=== PATIENT | female | born 1990 | race African-American/Black ===

== ENCOUNTER 2020-05-03 16:57 | Inpatient (IN) | payer SELFPAY ==
[~2020-05-03] VITALS: Ht 160 cm; Wt 103.2 kg
[~2020-05-03 16:57] MED LIST: ALBUTEROL2.5 MG/3 M INH; ATIVAN0.5 MG ORAL; AZITHROMYCIN250 MG ORAL; DULERA 100 MCG/13 GM INH; IBUPROFEN600 MG ORAL; NICODERM 21MG/241 EA TDERMAL; PREDNISONE20 MG ORAL; ZOLOFT50 MG ORAL
[2020-05-03] MEDS ORDERED: Ipratropium 0.02% Inh Soln 2.5ml UD HHN ONE (17:00)
[2020-05-03] MEDS ORDERED: EPINEPHrine 1mg/1ml Amp IM ONE (17:00)
[2020-05-03 17:02] VITALS: BP 144/74
--- NOTE | 2020-05-03 17:06 | Emergency Room Report ---
History of Present Illness General Chief Complaint: Dyspnea/Respdistress Source: Patient, Medical Record Present Illness HPI Patient presents with severe dyspnea saying her asthma is worse at this time. This began this morning. She has been using her inhaler frequently and has not been helping. She complains of some chest pain. She is not coughing up any productive phlegm. She denies fevers or chills. Patient has never been intubated. The patient is using some [id number] asthma medication recently. She has used prednisone in the past. She denies this being her worst attack ever but states it is very significant. She does not believe she has been exposed to COVID-19. Apparently the patient does smoke cigarettes. She does not believe she is at this time. No sore throat, palpitations, nausea, vomiting, diarrhea, dysuria, abdominal pain, joint pain, rashes, dizziness, headache. 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4 110 22 144/74 (97) 98 Room Air Sp02 EP Interpretation: reviewed, normal - Visit General Appearance: alert, non-toxic, mild distress, other - Diaphoretic Head: normocephalic Eyes: bilateral eye normal inspection ENT: normal pharynx, moist mucus membranes Neck: supple Respiratory: respiratory distress - But is asthmatic that was in status asthmaticus was refusing to get breathing treatments but gave her Leica I gave her epi and had to rule out COVID-19 to be able to give her breathing treatments needed, wheezing - Audible inspiratory and expiratory at bedside Cardiovascular #1: tachycardia Cardiovascular #2: 2+ radial (R) Gastrointestinal: normal inspection, normal bowel sounds, non tender, no mass, non-distended, overweight Genitourinary: no CVA tenderness Musculoskeletal: back normal, normal range of motion, no calf tenderness, gait/ station normal - Limited by dyspnea Neurologic: alert, oriented x3, grossly normal Psychiatric: anxious Skin: no rash, diaphoresis Procedures Critical Care Time Critical Care Time Total Critical Care Time: 60 min bedside evaluation and treatment excludes procedures (EKG). Reason for critical care: status asthmaticus, repeat evaluations Possible complications: hypotension, hypertension, [place], shock, arrhythmias, metabolic acidosis, end organ damage, respiratory failure. Interventions: steroids, epi, breathing treatments, repeat evaluations, magnesium Course: Patient presented with severe shortness of breath and wheezing. Unable to give nebulized treatment until COVID-19 excluded. IM epinephrine administered along with Solu-Medrol. Some improvement. COVID-19 negative. Nebulized treatments begun. Patient with the significant anxiety and Ativan administered. Patient still with dyspnea with minimal exertion. Breathing treatments ordered again but refused by patient. Consultations: nursing staff, EMS, RT, admitting physician Performed by: Dr. Lua Tolerated well condition = serious Medical Decision Making Diagnostic Impression: Primary Impression: Status asthmaticus Qualified Codes: J45.52 - Severe persistent asthma with status asthmaticus ER Course Patient presents with severe asthma attack. Differential includes pulmonary embolus, electrolyte imbalance, pneumonia amongst others. Patient evaluated EKG , chest x-ray and labs. Patient needs a COVID-19 test before we can give her nebulized treatments which is what she is asking for. In the interim the patient will be treated with IM epinephrine. Also Solu-Medrol will be administered. We will be checking a magnesium level. EKG without injury or right axis deviation. Chest x-ray no infiltrates. COVID- 19 negative. Labs with leukocytosis which might be demargination. After epinephrine diaphoresis gone. She still states that she does not feel well and is having difficulty breathing. Ativan ordered. Improved but still with wheezing. Magnesium ordered. Dyspnea with minimal exertion but able to ambulate to bathroom with several stops. Repeat breathing treatments ordered. Patient refusing further breathing treatments. Admit telemetry. Laboratory Tests Test 05/03/20 17:17 White Blood Count 13.0 K/UL (4.8-10.8) H Red Blood Count 4.92 M/UL (4.20-5.40) Hemoglobin 13.9 G/DL (12.0-16.0) Hematocrit 42.0 % (37.0-47.0) Mean Corpuscular Volume 85 FL (80-99) Mean Corpuscular Hemoglobin 28.3 PG (27.0-31.0) Mean Corpuscular Hemoglobin Concent 33.2 G/DL (32.0-36.0) Red Cell Distribution Width 13.6 % (11.6-14.8) Platelet Count 323 K/UL (150-450) Mean Platelet Volume 8.9 FL (6.5-10.1) Neutrophils (%) (Auto) 89.0 % (45.0-75.0) H Lymphocytes (%) (Auto) 8.0 % (20.0-45.0) L Monocytes (%) (Auto) 2.0 % (1.0-10.0) Eosinophils (%) (Auto) 1.0 % (0.0-3.0) Basophils (%) (Auto) % (0.0-2.0) Prothrombin Time 10.1 SEC (9.30-11.50) Prothrombin Time INR 0.9 (0.9-1.1) Activated Partial Thromboplast Time 28 SEC (23-33) Sodium Level 140 MMOL/L (136-145) Potassium Level 4.2 MMOL/L (3.5-5.1) Chloride Level 102 MMOL/L (98-107) Carbon Dioxide Level 25 MMOL/L (21-32) Anion Gap 13 mmol/L (5-15) Blood Urea Nitrogen 7 mg/dL (7-18) Creatinine 1.1 MG/DL (0.55-1.30) Estimated Glomerular Filtration Rate > 60 mL/min (>60) Glucose Level 117 MG/DL (74-106) H Calcium Level 9.4 MG/DL (8.5-10.1) Magnesium Level 2.0 MG/DL (1.8-2.4) Total Bilirubin 0.6 MG/DL (0.2-1.0) Aspartate Amino Transferase (AST) 31 U/L (15-37) Alanine Aminotransferase (ALT) 44 U/L (12-78) Alkaline Phosphatase 107 U/L (46-116) Troponin I 0.000 ng/mL (0.000-0.056) Total Protein 8.8 G/DL (6.4-8.2) H Albumin 4.6 G/DL (3.4-5.0) Globulin 4.2 g/dL Albumin/Globulin Ratio 1.1 (1.0-2.7) Human Chorionic Gonadotropin, Qual Negative (NEGATIVE) Microbiology Date/Time Source Procedure Growth Status 05/03/20 17:17 Nasopharynx SARS-CoV-2 RdRp Gene Assay - Final Complete EKG Diagnostic Results Rate: tachycardiac Rhythm: NSR ST Segments: no acute changes Rhythm Strip Diag. Results EP Interpretation: yes Rhythm: no PVC's, no ectopy, other - Sinus tachycardia Chest X-Ray Diagnostic Results Chest X-Ray Diagnostic Results : Chest X-Ray Ordered: Yes # of Views/Limited/Complete: 1 View Indication: Shortness of Breath EP Interpretation: Yes Interpretation: no consolidation, no effusion, no pneumothorax, other Impression: Other Electronically Signed by: Electronically signed by Roc Lua MD Last Vital Signs Date Time Temp Pulse Resp B/P (MAP) Pulse Ox O2 Delivery O2 Flow Rate FiO2 05/04/20 00:00 97.9 115 23 137/59 (85) 100 05/03/20 23:40 Room Air 21 Status: improved Disposition: ADMITTED INPATIENT Condition: Serious Roc Lua MD May 03, 2020 17:05
--- NOTE | 2020-05-03 17:10 | NUR ---
ED Nurse Note: Patient walked in to ER from home due to SOB and chest tightness since today. Pt has hx of asthma and reported that she took albuterol but didnt work for her. Patient presented anxious, AAO x4, HR 112, othe VSS at this time.
[2020-05-03] MEDS ORDERED: Solu-MEDROL 125mg Inj IVP ONE (17:15)
[2020-05-03 17:46] LABS: HEMOGLOBIN 13.9 G/DL (12.0-16.0); MEAN CORPUSCULAR VOLUME 85 FL (80-99); PLATELET COUNT 323 K/UL (150-450); RED BLOOD COUNT 4.92 M/UL (4.20-5.40); RED CELL DISTRIBUTION WIDTH 13.6 % (11.6-14.8)
[2020-05-03 17:56] LABS: ANION GAP 13 mmol/L (5-15); BLOOD UREA NITROGEN 7 mg/dL (7-18); CALCIUM 9.4 MG/DL (8.5-10.1); CARBON DIOXIDE 25 MMOL/L (21-32); CHLORIDE 102 MMOL/L (98-107); CREATININE 1.1 MG/DL (0.55-1.30); POTASSIUM 4.2 MMOL/L (3.5-5.1); SODIUM 140 MMOL/L (136-145)
[2020-05-03 18:00] LABS: ALANINE AMINOTRANSFERASE 44 U/L (12-78); ALBUMIN 4.6 G/DL (3.4-5.0); ALBUMIN/GLOBULIN RATIO 1.1 (1.0-2.7); ALKALINE PHOSPHATASE 107 U/L (46-116); ASPARTATE AMINO TRANSFERASE 31 U/L (15-37); BILIRUBIN,TOTAL 0.6 MG/DL (0.2-1.0)
[2020-05-03] MEDS: Albuterol ud Inhalation HHN SCH ×2 (18:19→18:20)
[2020-05-03] MEDS ORDERED: LORazepam Inj 2mg/ml 1ml IV ONE (18:30)
--- NOTE | 2020-05-03 18:37 | NUR ---
ED Nurse Note: Patient COVID (-), patient getting breathing treatment
[2020-05-03 18:40] LABS: INR 0.9 (0.9-1.1)
--- NOTE | 2020-05-03 19:06 | NUR ---
HAND-OFF: Report given to Westley Gallagher RN.
--- NOTE | 2020-05-03 19:42 | NUR ---
ED Nurse Note: patient resting in bed with no signs of acute distress. audible wheezes noted. discussed plan of care; aware of pending admission.
[2020-05-03] MEDS ORDERED: Albuterol ud Inhalation HHN ONE (20:00)
[2020-05-03 20:04] VITALS: BP 148/79
--- NOTE | 2020-05-03 20:49 | NUR ---
ED Nurse Note: rt at bedside for breathing treatment. patient refused. explained risk and benefits x3. patient still refused.
--- NOTE | 2020-05-03 20:50 | NUR ---
TRANSFER TO FLOOR: Patient transferred to [facility] 214-2 as ordered, per derrek escobedo. Report given to lily mobley. patient stable for transport. transferred to unit via gurney with rn. belongings and admission packet sent with patient.
[2020-05-03 21:00] VITALS: BP 142/78
--- NOTE | 2020-05-03 21:00 | NUR ---
NURSE NOTES: Report received form Westley Gallagher ED RN. Belonging list was reviewed with ED nurse. Patient came from ER via gurney. Patient is A/O x4 and in stable condition. No complains of pain. No S/S of distress; but is stating that she has an increase of anxiety. IV site is located 20g left AC saline lock; patent and flushing. No erythema or bleeding noted. Patients is fully ambulatory with a steady gait. Skin is intact. Bed in lowest position, brake are on, sidrails up x2. Call light and belongings with in reach. Patient educated to call nurse before getting up. Will continue to monitor.
--- NOTE | 2020-05-03 21:50 | NUR ---
NURSE NOTES: Called Dr. Ferrer regarding admission orders. Received admission orders. Noted and carried out.
--- NOTE | 2020-05-03 21:55 | NUR ---
NURSE NOTES: Patient is requesting medication for anxiety. Will call for orders. Will continue to monitor.
--- NOTE | 2020-05-03 22:00 | NUR ---
NURSE NOTES: Called Dr. Ferrer regarding patient request for anxiety medication. Received order for Ativan 0.5mg IVP Q6Hr. Noted and cared out.
[2020-05-03] MEDS ORDERED: LORazepam Inj 2mg/ml 1ml IVP PRN (22:15)
--- NOTE | 2020-05-03 22:57 | NUR ---
NURSE NOTES: Patient sleeping comfortably at this time. will countinue to monitor.
[2020-05-03] MEDS: Albuterol/Ipratropium 3ml neb HHN SCH (23:40)
[2020-05-04] VITALS: BP 137/59
[2020-05-04] MEDS: Azithromycin 500 MG in D5W 275 ML IV SCH ×2 (00:38→01:35)
[2020-05-04] MEDS: Albuterol/Ipratropium 3ml neb HHN SCH ×3 (03:23→11:02)
[2020-05-04 04:00] VITALS: BP 118/69
[2020-05-04 07:36] LABS: ANION GAP 12 mmol/L (5-15); BLOOD UREA NITROGEN 9 mg/dL (7-18); CALCIUM 8.5 MG/DL (8.5-10.1); CARBON DIOXIDE 22 MMOL/L (21-32); CHLORIDE 103 MMOL/L (98-107); SODIUM 137 MMOL/L (136-145)
--- NOTE | 2020-05-04 07:39 | NUR ---
NURSE HAND-OFF REPORT: Important Events on Shift:None Patient Status: Stable Diet: Regular Pending Orders: None Pending Results/Labs:Pending Pending MD notification:N/a Latest Vital Signs: Temperature 97.7 , Pulse 101 , B/P 118 /69 , Respiratory Rate 20 , O2 SAT 97 , Room Air, O2 Flow Rate . Vital Sign Comment: N/A EKG Rhythm: Sinus Tachycardia Rhythm change?: N MD Notified?: - MD Response: Latest Morrissey Fall Score: 20 Fall Risk: Low Risk Safety Measures: Call light Within Reach, Bed Alarm Zone 2, Side Rails Side Rails x2, Bed position Low and Locked. Fall Precautions: Implemented Yellow Socks Yellow Gown Patient Fall Education Report given to Mary CROSS.
[2020-05-04 08:00] VITALS: BP 135/75
[2020-05-04 08:04] LABS: PHOSPHORUS 2.5 MG/DL (2.5-4.9)
--- NOTE | 2020-05-04 08:06 | NUR ---
NURSE NOTES: Received report from AMERICA Keller. Pt A/O x4. No s/s of acute respiratory and cardiac distress. Currently on room air. SL on right hand, patent and intact. Bed in low position, side rails up x2 and call light within reach. Will continue to monitor.
--- NOTE | 2020-05-04 08:35 | History & Physical ---
History of Present Illness General Reason for Hospitalization: Dyspnea/Respdistress Present Illness Allergies: Coded Allergies: No Known Allergies (Unverified , 03/28/15) COVID-19 Screening Contact w/high risk pt: No Experienced COVID-19 symptoms?: No Medication History Scheduled Azithromycin* (Zithromax*), 250 MG ORAL DAILY Ibuprofen (Motrin), 600 MG ORAL THREE TIMES A DAY Mometasone/Formoterol (Dulera 100 Mcg/5 Mcg Inhaler), 2 PUFFS INH DAILY, ( Reported) Nicotine (Nicotine Patch), 1 PATCH TDERMAL Q24H Prednisone* (Prednisone*), 40 MG ORAL DAILY Prednisone* (Prednisone*), 20 MG ORAL BID Sertraline Hcl* (Zoloft*), 50 MG ORAL DAILY Scheduled PRN Albuterol Sulfate* (Albuterol Sulfate Hhn*), 3 ML INH Q6H PRN for Shortness of Breath, (Reported) Lorazepam* (Ativan*), 0.5 MG ORAL Q6H PRN for For Anxiety Patient History Healthcare decision maker Resuscitation status Advanced Directive on File Review of Systems Review of Symptoms General ROS: no weight loss or fever Psychological ROS: no depression or mood changes, no memory loss Ophthalmic ROS: no visual changes or eye irritation ENT ROS: no nasal congestion, hearing loss, dizziness Allergy and Immunology ROS: no allergic symptoms or urticaria Hematological and Lymphatic ROS: no swollen glands, unusual bleeding or bruising Endocrine ROS: no polyuria, polydipsia, weight changes, temperature intolerance Respiratory ROS: no cough, shortness of breath, or wheezing Cardiovascular ROS: no chest pain or dyspnea on exertion Gastrointestinal ROS: denies abdominal pain, bright red blood in stool. Musculoskeletal ROS: no myalgias or arthralgias Neurological ROS: no TIA or stroke symptoms Dermatological ROS: no new or changing skin lesions, rashes or pruritis Physical Exam Physical Exam General appearance: alert, cooperative, no distress, appears stated age Head: Normocephalic, without obvious abnormality, atraumatic Eyes: conjunctivae/corneas clear. PERRL, EOM's intact. Fundi benign Throat: Lips, mucosa, and tongue normal. Teeth and gums normal Neck: supple, symmetrical, trachea midline, no adenopathy, thyroid: not enlarged, symmetric, no tenderness/mass/nodules, no carotid bruit and no JVD Lungs: clear to auscultation bilaterally Heart: regular rate and rhythm, S1, S2 normal, no murmur, click, rub or gallop Abdomen: soft, non-tender. Bowel sounds normal. No masses, no organomegaly Extremities: extremities normal, atraumatic, no cyanosis or edema Pulses: 2+ and symmetric Skin: Skin color, texture, turgor normal. No rashes or lesions Neurologic: Grossly normal Last 24 Hour Vital Signs Date Time Temp Pulse Resp B/P (MAP) Pulse Ox O2 Delivery O2 Flow Rate FiO2 05/04/20 08:00 97.7 105 20 135/75 (95) 95 05/04/20 04:00 101 05/04/20 04:00 97.7 107 20 118/69 (85) 97 05/04/20 03:25 106 20 100 Room Air 21 102 20 100 05/04/20 00:00 97.9 115 23 137/59 (85) 100 05/04/20 00:00 108 05/03/20 23:40 111 20 100 Room Air 21 108 20 99 05/03/20 21:38 Room Air 05/03/20 21:00 97.7 118 20 142/78 (99) 98 05/03/20 21:00 118 05/03/20 20:50 98.4 120 22 146/89 100 Room Air 05/03/20 20:04 98.4 122 22 148/79 100 Room Air 05/03/20 18:22 103 22 100 Room Air 21 05/03/20 17:02 98.4 112 22 144/74 98 Room Air 05/03/20 17:02 112 22 Room Air 05/03/20 16:58 98.4 110 22 144/74 (97) 98 Room Air Intake and Output 05/03/20 05/04/20 19:00 07:00 Intake Total 275 ml Balance 275 ml Intake IV Total 275 ml # Voids 1 3 Laboratory Tests Test 05/03/20 17:17 05/04/20 06:33 White Blood Count 13.0 K/UL (4.8-10.8) H Red Blood Count 4.92 M/UL (4.20-5.40) Hemoglobin 13.9 G/DL (12.0-16.0) Hematocrit 42.0 % (37.0-47.0) Mean Corpuscular Volume 85 FL (80-99) Mean Corpuscular Hemoglobin 28.3 PG (27.0-31.0) Mean Corpuscular Hemoglobin Concent 33.2 G/DL (32.0-36.0) Red Cell Distribution Width 13.6 % (11.6-14.8) Platelet Count 323 K/UL (150-450) Mean Platelet Volume 8.9 FL (6.5-10.1) Neutrophils (%) (Auto) 89.0 % (45.0-75.0) H Lymphocytes (%) (Auto) 8.0 % (20.0-45.0) L Monocytes (%) (Auto) 2.0 % (1.0-10.0) Eosinophils (%) (Auto) 1.0 % (0.0-3.0) Basophils (%) (Auto) % (0.0-2.0) Prothrombin Time 10.1 SEC (9.30-11.50) Prothromb Time International Ratio 0.9 (0.9-1.1) Activated Partial Thromboplast Time 28 SEC (23-33) Sodium Level 140 MMOL/L (136-145) 137 MMOL/L (136-145) Potassium Level 4.2 MMOL/L (3.5-5.1) 4.0 MMOL/L (3.5-5.1) Chloride Level 102 MMOL/L (98-107) 103 MMOL/L (98-107) Carbon Dioxide Level 25 MMOL/L (21-32) 22 MMOL/L (21-32) Anion Gap 13 mmol/L (5-15) 12 mmol/L (5-15) Blood Urea Nitrogen 7 mg/dL (7-18) 9 mg/dL (7-18) Creatinine 1.1 MG/DL (0.55-1.30) 1.0 MG/DL (0.55-1.30) Estimat Glomerular Filtration Rate > 60 mL/min (>60) > 60 mL/min (>60) Glucose Level 117 MG/DL (74-106) H 132 MG/DL (74-106) H Calcium Level 9.4 MG/DL (8.5-10.1) 8.5 MG/DL (8.5-10.1) Magnesium Level 2.0 MG/DL (1.8-2.4) 2.0 MG/DL (1.8-2.4) Total Bilirubin 0.6 MG/DL (0.2-1.0) Aspartate Amino Transf (AST/SGOT) 31 U/L (15-37) Alanine Aminotransferase (ALT/SGPT) 44 U/L (12-78) Alkaline Phosphatase 107 U/L (46-116) Troponin I 0.000 ng/mL (0.000-0.056) Total Protein 8.8 G/DL (6.4-8.2) H Albumin 4.6 G/DL (3.4-5.0) Globulin 4.2 g/dL Albumin/Globulin Ratio 1.1 (1.0-2.7) Human Chorionic Gonadotropin, Qual Negative (NEGATIVE) Phosphorus Level 2.5 MG/DL (2.5-4.9) Microbiology Date/Time Source Procedure Growth Status 05/03/20 17:17 Nasopharynx SARS-CoV-2 RdRp Gene Assay - Final Complete Height (Feet): 5 Height (Inches): 3.00 Weight (Pounds): 227 Medications Current Medications Medications (Trade) Dose Ordered Sig/Danuta Route PRN Reason Start Time Stop Time Status Last Admin Dose Admin Albuterol/ Ipratropium (Albuterol/ Ipratropium) 3 ml Q4HRT HHN 05/03/20 23:00 05/08/20 22:59 05/04/20 07:57 Azithromycin 500 mg/Dextrose 275 ml @ 275 mls/hr Q24HRS IV 05/03/20 00:00 05/09/20 00:59 05/04/20 00:38 Lorazepam (Ativan 2mg/ml 1ml) 0.5 mg Q6H PRN IVP For Anxiety 05/03/20 22:15 05/10/20 22:14 Methylprednisolone Sodium Succinate (Solu-MEDROL) 60 mg DAILY IVP 05/04/20 09:00 08/02/20 08:59 Sodium Chloride 1,000 ml @ 300 mls/hr Q3H20M IV 05/03/20 17:00 06/02/20 16:59 05/03/20 20:45 [facility] Hospital declaration INPATIENT level of care is warranted for this patient because patient is a 89 year old with who presents with suspicion of . I have a high level of concern because . Patient is at high risk for . Plan of care/treatment include . Patient care is expected to be greater than 2 midnights. OBSERVATION level of care is warranted for this patient. Patient is a 89 year old with who presents with . Patient will be admitted for 1 midnight, but if additional night(s) is/are necessary, patient will be converted to inpatient status for the entire hospitalization Disposition: Once the patient is stable to leave the hospital, I anticipate the patient will likely be discharged to the following environment: Estimated discharge date: I spent 70 minutes on this patient's case, and minutes was dedicated to counseling and/or care coordination. MIPS (Merit-based Incentive Payment System) Applicable CPT: 74999, 64826 CHECK ALL THAT ARE MET: Measure #5 (CHF): All ages. Prescribe KALEE/ARB upon discharge for patients with left ventricular systolic dysfunction. If not, the reason is clearly documented in the medical chart. Measure #8 (CHF): All ages. Prescribe a beta jennyfer upon discharge for patients with left ventricular systolic dysfunction. If not, the reason is clearly documented in the medical chart. Measure #47 Advance care plan or surrogate decision maker documented in the medical record. Measure #130 The provider has documented, updated, or reviewed the patients current medication list and has documented it in the patients note. Measure #374 (All): Send report to referring provider. Measure #407(Sepsis due to MSSA bacteremia): Age 18+ Patient treated with a beta-lactam antibiotic (Nafcillin, Oxacillin or Cefazolin) as definitive therapy. MEDICAL COMPLEXITY High complexity medical decision making (need 2/3 categories) Problem - need 4 points Acute/new problem with new plan for workup (4 points, 1 max) Acute/new problem without additional workup (3 points, 1 max) Unstable chronic problem actively being managed (2 point each, 2 max) Stable chronic problem actively being managed (1 point each, 2 max) Self-limited/transient process (constipation, muscle ache, etc) (1 point each , 2 max) Data - need 4 points Reviewed labs/imaging studies (1 points, 2 max) Independent review of imaging (EKG, xrays, etc) (2 points, 2 max) Discussed case with consult/other MD/RN (2 points, 2 max) High Risk - qualify if have one of the following: Severe exacerbation of acute problem, acute mental status change, IV narcotics , monitoring drug levels (vancomycin, INR, tacrolimus etc) Ernie Ferrer M.D. May 04, 2020 08:35
[2020-05-04] MEDS ORDERED: Solu-MEDROL 125mg Inj IVP SCH (09:00)
[2020-05-04 12:39] VITALS: BP 119/67
--- NOTE | 2020-05-04 12:43 | NUR ---
NURSE NOTES: Received transfer order to med/surg. Gave report to charge nurse AMERICA Yi due to receiving nurse is out to lunch. Pt no s/s of acute distress. Sl on left AC and right hand patent and intact. Currently on room air. Endorsed plan of care.
[2020-05-04] MEDS ORDERED: LORazepam Inj 2mg/ml 1ml IVP PRN (12:45)
--- NOTE | 2020-05-04 12:48 | Diagnostic Imaging Report ---
Indication: Shortness of breath Technique: One view of the chest Comparison: 03/28/2015 Findings: Stable linear scarring seen at the right lung base. Lungs and pleural spaces are otherwise clear. The heart size is normal. No significant change Impression: No acute process
--- NOTE | 2020-05-04 12:50 | NUR ---
NURSE NOTES: PT WAS TRANSFERRED FROM TELEMETRY IN STABLE CONDITION. IN NO APPARENT DISTRESS AT THIS TIME. PT RESTING IN BED. DENIES PAIN OR SOB. NO RESPIRATORY DISTRESS NOTED AT THIS TIME. PT ORIENTED TO ROOM AND ABLE TO VERBALIZE HOW TO USE CALL LIGHT FOR ANY ASSISTANCE. PT EDUCATED ON FALL RISKS. PT VERBALIZED UNDERSTANDING. WILL CONTINUE TO MONITOR.
--- NOTE | 2020-05-04 14:30 | Consultation ---
DATE OF CONSULTATION: 05/04/2020 PULMONARY CONSULTATION CONSULTING PHYSICIAN: Gabriel Harris MD. HISTORY OF PRESENT ILLNESS: This is a 29-year-old female, who was admitted to the hospital with asthma. The patient states she uses only albuterol and avoids other controller medications on her own. She does not see her doctor regularly. She has taken prednisone in the past. She has never been intubated. REVIEW OF SYSTEMS: Denies any headaches, hematemesis, melena, hematochezia, night sweats or weight loss. PAST MEDICAL HISTORY: Asthma only. HOME MEDICATIONS: Albuterol. SOCIAL HISTORY: Denies alcohol or tobacco usage. PHYSICAL EXAMINATION: VITAL SIGNS: Blood pressure is 130/70, heart rate is 94, respirations are 20, O2 saturation 97% on room air. GENERAL: Reveals a 29-year-old female. HEENT: Unremarkable. CHEST: Shows few rhonchi. ABDOMEN: Soft. EXTREMITIES: There is no edema. NEUROLOGIC: Nonfocal. LABORATORY DATA: Lab testing is notable for white count 30,000, otherwise normal normal CBC and BMP. X-ray chest not available. Per ER report is negative. IMPRESSION: 1. Bronchial asthma with exacerbation. 2. Medication noncompliance. DISCUSSION: The patient has been admitted overnight. Her rapid gene assay for COVID-19 is negative. At this point, she is comfortable. I have discussed her care with her. She may be discharged on a course of oral prednisone taper with recommendations to start Advair and albuterol. Outpatient followup. Gabriel Harris M.D. DR: SNEHA JOB#: [id number] CC:
[2020-05-04] MEDS ORDERED: PREDNISONE20 MG ORAL (14:46)
[2020-05-04] MEDS ORDERED: ALBUTEROL2.5 MG/3 M INH (14:47)
--- NOTE | 2020-05-04 14:51 | NUR ---
NURSE NOTES: PT STATES A DOCTOR CAME AND TOLD HER SHE WOULD BE DISCHARGED. PT RECEIVED PRESCRIPTION FROM DR PENNINGTON. RN LEFT MESSAGE FOR DR PENNINGTON TO CLARIFY IF PT IS BEING DISCHARGED TODAY. NO DISCHARGE ORDER NOTED. CRN MADE AWARE.
--- NOTE | 2020-05-04 14:55 | NUR ---
CASE MANAGEMENT:REVIEW WALKED INTO ER CC: SOB AND CHEST TIGHTNESS. AUDIBLE WHEEZING NOTED SI: STATUS ASTHMATICUS 98.5 110 22 144/74 98% ON RA WBC+13.0 IS: DUONEB HHN Q15 MIN 1L NS BOLUS X2 EPINEPHRINE IM IV SOLUMEDROL IV ATIVAN IV MAG SULFATE IV AZITHROMYCIN COVID SWAB CHEST XRAY : TO TELEMETRY DCP: FROM HOME
[2020-05-04] MEDS ORDERED: Albuterol/Ipratropium 3ml neb HHN SCH (15:00)
--- NOTE | 2020-05-04 15:06 | NUR ---
INSURANCE PER RITA, SHE WILL START A MCAL APPLICATION
--- NOTE | 2020-05-04 15:34 | NUR ---
NURSE NOTES: DISCHARGE ORDER HOME NOTED. PT RECEIVING BREATHING TREATMENT AT THIS TIME. PER PT, SHE WILL TAKE [facility] HOME.
[2020-05-04 16:00] VITALS: BP 121/76
--- NOTE | 2020-05-04 16:36 | NUR ---
NURSE NOTES: DISCHARGE ORDER FROM DR PENNINGTON NOTED. PT MADE AWARE AND AGREES TO DISCHARGE. PT WAS EDUCATED ON PRESCRIPTION MEDICATIONS AND USES/SIDE EFFECTS. PT VERBALIZED UNDERSTANDING. BELONGINGS CHECKED AT BEDSIDE AND ALL ACCOUNTED. IV ACCESS ON RIGHT HAND AND LEFT AC DISCONTINUED. PT EDUCATED TO FOLLOW UP WITH PCP IN 1 WEEK. PER PT, SHE DOES NOT HAVE A PCP. RN PROVIDED DR PENNINGTON AND DR INGRAM OFFICE CONTACT NUMBERS FOR POSSIBLE FOLLOW UP. PT EDUCATED ON SIGNS AND SYMPTOMS THAT REQUIRE EMERGENCY CARE. PT VERBALIZED UNDERSTANDING. PT WAS ESCORTED TO HOSPITAL EXIT. PT TO CALL [facility] TO GET HOME. PT WAS DISCHARGED IN STABLE CONDITION.
[2020-05-05] MEDS ORDERED: Azithromycin 500 MG in D5W 275 ML IV SCH ×2
[2020-05-05] MEDS ORDERED: Solu-MEDROL 125mg Inj IVP SCH (09:00)
--- NOTE | 2020-05-06 10:00 | Discharge Summary ---
Discharge Summary Discharge Summary _ DATE OF ADMISSION: 05/03/2020 DATE OF DISCHARGE: 05/04/2020 DISCHARGED BY: Dr. Ferrer REASON FOR ADMISSION: 29 years old female with past medical history of asthma, presented due to severe dyspnea, started earlier that morning. Patient reported using inhaler without improvement in symptoms. Patient reported some chest pain. She denied coughing. No fever or chills. Patient had never been intubated in the past. Patient admitted taking prednisone in the past. Vital signs reveal mild tachycardia with heart rate 110 and tachypnea with respiratory rate 22. Pulse oximetry was stable on room air. Rapid COVID-19 was negative. Chest x-ray revealed no acute cardiopulmonary process. Laboratory work-up revealed mild leukocytosis WBC 13 ,stable hemoglobin, hematocrit and platelet count. Stable electrolytes Troponin negative , ECG revealed normal sinus rhythm, no acute ischemic changes. test was negative. In emergency department patient received intramuscular epinephrine and Solu- Medrol. After rapid COVID-19 was negative , patient started received nebulizing treatment with bronchodilator. Patient subsequently admitted overnight to medical surgical floor for further management . CONSULTANTS: pulmonary Dr. Harris [facility] COURSE: Patient admitted to medical surgical floor. Pulmonology consult was requested. Nebulizing treatment via [facility]N with bronchodilator provided [id number] and as needed. Patient started on IV steroids and empiric antibiotic. Supplemental oxygen was on board as needed to keep pulse oximetry above 92%. Pulse oximetry remained stable on room air. Overnight patient clinically stabilized and was ready for discharge home on oral steroids for 5 days. Due to rapid and unexpected improvement in patient condition, patient was discharged in 1 day. FINAL DIAGNOSES: Asthma bronchial asthma exacerbation Medication noncompliance DISCHARGE MEDICATIONS: See Medication Reconciliation list. DISCHARGE INSTRUCTIONS: Patient was discharged home. Follow-up with a primary care provider in 1 week. I have been assigned to dictate discharge summary for this account. I was not involved in the patient's management. Catalina Simon NP May 06, 2020 10:00
== END 2020-05-04 16:05 | disposition home or self-care (01) | DRG 203 ==
LOC: EMR 17:24 → 2E 19:57 → EDBEDREQ 20:26 → 4E 05-04 12:08
DX: J45.901 Unspecified asthma with (acute) exacerbation (principal); Z91.19 Patient's noncompliance with other medical treatment and regimen
CPT/HCPCS: 36415; 71045; 80048; 80053; 83735; 84100; 84484; 84703; 85025; 85610; 85730; 93005; 94640; 96361; 96365; 96366; 96367; 96372; 96375; 99291; J7620; U0002